=== PATIENT | female | born 1960 | race Caucasian/White ===

== ENCOUNTER 2020-05-02 09:59 | Outpatient (REF) | payer MEDICARE, SELFPAY ==
--- NOTE | 2020-05-02 10:06 | MM_ITS ---
EXAMINATION: MM SCREENING DIGITAL BREAST TOMOSYNTHESIS, BILATERAL CLINICAL INFORMATION: Screening. Asymptomatic. Prior history reduction mammoplasty. The lifetime risk of breast cancer based on the Tyrer-Cuzick Model is 7%. COMPARISON: Mammography: 04/27/2019, 04/23/2018, 01/31/2017 TECHNIQUE: Digital breast tomosynthesis is performed in both the craniocaudal and mediolateral oblique views along with computer-aided detection (CAD). Synthesized 2D images are generated from the tomosynthesis. FINDINGS: There are scattered areas of fibroglandular density (ACR BI-RADS breast composition Category b). Breast tissue composition borders on heterogeneously dense. Parenchymal pattern is similar to prior study. There is no significant mass or interval architectural abnormality or abnormal calcifications. No significant changes from prior studies. MM/MM tomosynthesis screening BI IMPRESSION: No significant changes from prior exams. ASSESSMENT: BI-RADS 2: Benign RECOMMENDATION: Routine annual mammography screening. This patient's information was entered into a reminder system with a target due date for their next mammogram.
== END 2020-05-02 10:00 | disposition home or self-care (01) ==
LOC: HO.MAMMO 09:59
PROVIDERS: PCP Family Medicine; Visit Provider Family Medicine
DX: Z12.31 Encounter for screening mammogram for malignant neoplasm of breast (principal)
CPT/HCPCS: 77063; 77067

== ENCOUNTER 2021-05-08 12:09 | Outpatient (REF) | payer MEDICARE, SELFPAY ==
--- NOTE | ~2021-05-08 | XR_ITS ---
EXAMINATION: XR FOOT, LEFT CLINICAL INFORMATION: Question of foot fracture. COMPARISON: 03/29/2019 left foot radiographs. TECHNIQUE: AP, lateral, and oblique views of the left foot. FINDINGS: There is no acute fracture or dislocation. The joint spaces are unremarkable. The tarsal bones are normally aligned. A type II accessory navicular bone is noted. There is a small plantar calcaneal spur. Impression unremarkable. XR/XR foot LT min 3V IMPRESSION: 1. No acute abnormality in the left foot. 2. Small, degenerative plantar calcaneal spur.
--- NOTE | ~2021-05-08 | XR_ITS ---
EXAMINATION: XR HAND, LEFT CLINICAL INFORMATION: Left wrist injury. COMPARISON: None TECHNIQUE: PA, lateral, and oblique views of the left hand. An arrow points to the second digit. FINDINGS: Mild second and third distal interphalangeal degenerative joint changes are seen. Mild subcortical cystic changes are seen in the distal head of the third metacarpal. A tiny osseous density is seen at the ulnar base of the proximal phalanx of the second digit. There is mild soft tissue swelling. XR/XR hand LT min 3V IMPRESSION: 1. Mild degenerative joint changes most consistent with osteoarthritis. 2. Tiny osseous density at the radial base of the proximal phalanx of the second digit. The overall appearance is not appear acute, but this does correlate in location to the indicated region of pain. A nondisplaced acute intra-articular fracture cannot be excluded. Correlate with patient history and physical exam.
== END 2021-05-08 12:10 | disposition home or self-care (01) ==
LOC: HO.XRAY 12:09
PROVIDERS: PCP Family Medicine; Visit Provider Emergency Medicine
DX: S69.92XD Unspecified injury of left wrist, hand and finger(s), subsequent encounter (principal); S92.502D Displaced unspecified fracture of left lesser toe(s), subsequent encounter for fracture with routine healing
CPT/HCPCS: 73130; 73630

== ENCOUNTER 2021-11-10 08:49 | Outpatient (REF) | payer MEDICARE, SELFPAY ==
--- NOTE | ~2021-11-10 | MM_ITS ---
EXAMINATION: MM SCREENING DIGITAL BREAST TOMOSYNTHESIS, BILATERAL CLINICAL INFORMATION: Screening. Asymptomatic. The lifetime risk of breast cancer based on the Tyrer-Cuzick Model is 6%. COMPARISON: Mammography: 05/02/2020, 04/27/2019, 04/23/2018, 01/31/2017 TECHNIQUE: Digital breast tomosynthesis is performed in both the craniocaudal and mediolateral oblique views along with computer-aided detection (CAD). Synthesized 2D images are generated from the tomosynthesis. FINDINGS: There are scattered areas of fibroglandular density (ACR BI-RADS breast composition Category b). There are no significant masses, abnormal calcifications, or other abnormalities. There are scattered shifting fibroglandular parenchymal densities from year to year related to variation in positioning. No developing density or significant changes. Presentation composition borders on heterogeneously dense. No developing density. MM/MM tomosynthesis screening BI IMPRESSION: No mammographic evidence of malignancy. ASSESSMENT: BI-RADS 2: Benign RECOMMENDATION: Routine annual mammography screening. This patient's information was entered into a reminder system with a target due date for their next mammogram.
== END 2021-11-10 08:50 | disposition home or self-care (01) ==
LOC: HO.MAMMO 08:49
PROVIDERS: Visit Provider Family Medicine
DX: Z12.31 Encounter for screening mammogram for malignant neoplasm of breast (principal)
CPT/HCPCS: 77063; 77067

== ENCOUNTER 2022-08-31 15:52 | Outpatient (REF) | payer MEDICARE, SELFPAY ==
--- NOTE | ~2022-08-31 | XR_ITS ---
EXAMINATION: XR SHOULDER, RIGHT CLINICAL INFORMATION: Right shoulder pain. COMPARISON: None available. TECHNIQUE: AP external rotation, Grashey, scapular Y, and axillary views of the right shoulder. FINDINGS: The bones and soft tissues are normal. No fracture. Glenohumeral and acromioclavicular alignment is anatomic with normal joint space. No abnormal soft tissue calcifications. XR/XR shoulder RT min 2V IMPRESSION: Unremarkable right shoulder.
== END 2022-08-31 15:53 | disposition home or self-care (01) ==
LOC: HO.HHCX 15:52
PROVIDERS: PCP Family Medicine; Visit Provider Nurse Practitioner Primary Care
DX: M25.511 Pain in right shoulder (principal)
CPT/HCPCS: 73030

== ENCOUNTER 2022-09-11 14:41 | Outpatient (REF) | payer OTHER, SELFPAY ==
--- NOTE | ~2022-09-11 | US_ITS ---
EXAMINATION: Ultrasound extremity nonvascular CLINICAL INFORMATION: Tender mass right upper arm COMPARISON: None. TECHNIQUE: Grayscale and color imaging of the soft tissues of the right upper extremity FINDINGS: There is a 1 x 1 x 0.8 cm oval-shaped solid hyperechoic avascular soft tissue mass just deep to the skin corresponding to palpable abnormality. Ultrasound appearance is suggestive of a lipoma. US/US extremity nonvascular IMPRESSION: 1 x 1 x 0.6 cm hyperechoic solid subcutaneous mass suggestive of a lipoma. Further evaluation with contrast-enhanced CT or MRI should be considered if this is painful or increasing in size.
== END 2022-09-11 14:42 | disposition home or self-care (01) ==
LOC: HO.US 14:41
PROVIDERS: PCP Family Medicine; Visit Provider Nurse Practitioner Primary Care
DX: M79.89 Other specified soft tissue disorders (principal)
CPT/HCPCS: 76882

== ENCOUNTER 2022-11-16 08:53 | Outpatient (REF) | payer OTHER, SELFPAY ==
--- NOTE | ~2022-11-16 | MM_ITS ---
EXAMINATION: MM SCREENING DIGITAL BREAST TOMOSYNTHESIS, BILATERAL CLINICAL INFORMATION: Screening. Asymptomatic. The patient has had bilateral reduction mammoplasty. The lifetime risk of breast cancer based on the Tyrer-Cuzick Model is 6.3%. COMPARISON: Mammography: This study is compared with prior exams dating back to 2017. TECHNIQUE: Digital breast tomosynthesis is performed in both the craniocaudal and mediolateral oblique views along with computer-aided detection (CAD). Synthesized 2D images are generated from the tomosynthesis. FINDINGS: The breasts are heterogeneously dense, which may obscure small masses (ACR BI-RADS breast composition Category c). There are no significant masses, abnormal calcifications, or other abnormalities. Post reduction changes are present in each breast. MM/MM tomosynthesis screening BI IMPRESSION: No mammographic evidence of malignancy. ASSESSMENT: BI-RADS BI-RADS 2 - Benign Findings RECOMMENDATION: Routine annual mammography screening. 1 year F/U This examination should not preclude the clinical evaluation of a suspicious palpable abnormality. This patient's information was entered into a reminder system with a target due date for their next mammogram.
== END 2022-11-16 08:54 | disposition home or self-care (01) ==
LOC: HO.MAMMO 08:53
PROVIDERS: PCP Family Medicine; Visit Provider Family Medicine
DX: Z12.31 Encounter for screening mammogram for malignant neoplasm of breast (principal)
CPT/HCPCS: 77063; 77067

== ENCOUNTER → 2022-11-16 09:00 | Outpatient (BNV) | payer OTHER, SELFPAY | PROVIDERS: PCP Family Medicine; Visit Provider Radiology Diagnostic Radiology | DX: Z12.31 Encounter for screening mammogram for malignant neoplasm of breast (principal) | CPT/HCPCS: 77063; 77067 ==

== ENCOUNTER 2023-01-04 11:20 | Outpatient (REF) | payer OTHER, SELFPAY ==
[2023-01-04 13:09] LABS: MANUAL DIFF FLAG NO
[2023-01-04 13:33] LABS: Estimated Average Glucose 105 mg/dL; Hemoglobin A1c % 5.3 % (<6.0)
[2023-01-04 13:36] LABS: Basophils Percent Auto 0.1 % (0-2); Eosinophils Absolute Auto 0.1 X10*3/uL (0.0-0.4); Eosinophils Percent Auto 1.3 % (0-4); Hemoglobin 14.4 g/dl (12.0-16.0); Imm Gran Abs Auto 0.01 X10*3/uL (0.00-0.03); Imm Gran Pct Auto 0.1 % (0.0-0.4); Lymphocytes Percent Auto 44.3 % (20-40); Mean Corpuscular HGB Conc 33.5 g/dl (31.0-35.0); Mean Corpuscular Hemoglobin 30.4 pg (27.0-33.0); Mean Corpuscular Volume 90.7 fL (80.0-98.0); Mean Platelet Volume 11.4 fL (9.4-12.3); Monocytes Absolute Auto 0.6 X10*3/uL (0.1-1.2); Neutrophils Absolute Auto 3.1 x10*3/uL (2.0-8.3); Neutrophils Percent Auto 45.2 % (45-73); Platelet Count 198 X10*3/uL (160-400); Red Blood Count 4.74 X10*6/uL (4.20-5.50); Red Cell Distribution Width 12.6 % (11.0-16.0); White Blood Count 6.8 X10*3/uL (4.8-10.8)
[2023-01-04 13:53] LABS: Alanine Aminotransferase 15 U/L (0-31); Alkaline Phosphatase 185 U/L (39-117); Aspartate Amino Transferase 22 U/L (5-31); Bilirubin Direct 0.2 mg/dL (0.0-0.5); Bilirubin Total 0.4 mg/dL (0.0-1.0); Cholesterol 166 mg/dL (<200); HDL Cholesterol 41 mg/dL (>40); LDL Cholesterol Calculated 102 mg/dL (<100); Total Protein 7.2 g/dL (6.5-8.0); Triglycerides 119 mg/dL (<150)
[2023-01-04 14:15] LABS: TSH reflex Free T4 1.39 uIU/mL (0.32-4.0)
[2023-01-05 09:25] LABS: ~HepC Num1 0.13 S/CO (0.00-0.79); ~Hepatitis C Antibody Nonreactive (Nonreactive)
[2023-01-06 12:39] LABS: Calcium (PTHI) 9.4 mg/dL (8.6-10.4); PTHI 98 pg/mL (16-77)
[2023-01-09 17:49] LABS: VITAMIN D (1,25 OH) D3 68 pg/mL; Vit D (1,25-Dihydroxy) Total 68 pg/mL (18-72); Vitamin D (1,25 OH) D2 <8 pg/mL
== END 2023-01-04 11:21 | disposition home or self-care (01) ==
LOC: HO.HHCL 11:20
PROVIDERS: Visit Provider Family Medicine
DX: E66.09 Other obesity due to excess calories (principal); M79.7 Fibromyalgia; E55.9 Vitamin D deficiency, unspecified; I10 Essential (primary) hypertension; E21.3 Hyperparathyroidism, unspecified; Z11.59 Encounter for screening for other viral diseases; Z68.31 Body mass index [BMI] 31.0-31.9, adult; Z13.1 Encounter for screening for diabetes mellitus
CPT/HCPCS: 36415; 80061; 80076; 82652; 83036; 83970; 84443; 85025; 86803

== ENCOUNTER 2023-01-21 09:44 | Outpatient (AMB) | payer OTHER, SELFPAY ==
[2023-01-21 09:55] VITALS: BP 159/71; PULSE 59; BMI 28.1
--- NOTE | 2023-01-21 09:55 | MHC.OFFVIS ---
Intake Vital Signs 01/21/23 09:55 Height 4 ft 11 in Weight 139 lb BMI 28.1 BP 159/71 H Blood Pressure Location Rt brachial Position Sitting Pulse 59 Intake Visit Reasons: Mass on RT arm Intake Note: Patient referred for growth on Rt upper arm. Has been present for 10 yrs. States it has been enlarging over the years. C/o pain when lifting heavy objects. At times feels sore and tender to touch. Thinks it may be pinching a nerve. Lead Front End Developer Required: No Accompanied by: Self / Same As Patient Allergies [place] And Derivatives Allergy (Mild, Unverified 01/21/23 09:59) RASH pear [Pear] Allergy (Mild, Unverified 01/21/23 09:59) RASH colored soda Allergy (Unknown, Uncoded 01/21/23 09:59) Rash dogs/cats Allergy (Unknown, Uncoded 01/21/23 09:59) Rash dust Allergy (Unknown, Uncoded 01/21/23 09:59) Hives hot dogs Allergy (Unknown, Uncoded 01/21/23 09:59) Hives pollen Allergy (Unknown, Uncoded 01/21/23 09:59) Hives Medication List - Last Reconciled 01/21/23 by Ortiz Vila MD cetirizine (Allergy Relief (cetirizine)) 10 mg PO DAILY PRN fluticasone propionate 44 mcg/actuation 1 puff inhalation BID omeprazole 20 mg PO DAILY pregabalin 150 mg PO DAILY propranolol 20 mg PO BID simethicone 180 mg PO DAILY HPI HPI Comments History of Present Illness Details Patient presents with a several year history of a right upper outer arm soft tissue mass. His increasing size, become more symptomatic. She would like to have removed. The patient also feels a fullness of the right side of her neck that she wishes to have evaluated Chart was reviewed patient evaluated [facility] Medical History (Updated 01/21/23 @ 10:08 by ROSALIO Guzman) Insomnia Anxiety Sinusitis Migraine HTN (hypertension) section wound complication Sinusitis chronic, frontal Surgical History (Updated 01/21/23 @ 11:29 by Ortiz Vila MD) History of lithotripsy Hx of breast reduction, elective Family History (Updated 01/21/23 @ 10:05 by ROSALIO Guzman) Maternal Grandfather No problems noted. Social History (Updated 01/21/23 @ 10:07 by ROSALIO Guzman) Alcohol intake: never Patient Tobacco Use Status: Never used Tobacco Physical Exam Vital Signs: Last Vital Signs Pulse 59 01/21/23 09:55 BP 159/71 H 01/21/23 09:55 BMI result Body Mass Index 28.1 Neck Other: No obvious cervical periclavicular axillary adenopathy. Question of a soft tissue mass involving the patient the right anterior neck. Question of thyroid origin or soft tissue. Extrem Other: Approximately 2 x 1 cm right upper outer arm masses suggestive of lipoma Office Procedures Excision Details: Risks, benefits, alternatives of excision right upper arm lipoma reviewed the patient included not limited to bleeding, infection, recurrence, numbness, pain, scarring the patient was to proceed. Consent form signed. All questions were answered. After appropriate positioning and marking, patient underwent 1% lidocaine and Betadine prep to the right upper outer arm lipoma area. A longitudinal incision was made in approximately 2 x 1 cm lipoma was uneventfully enucleated. Specimen sent to pathology. Wounds was irrigated, secured hemostasis, and closed using running subcuticular 3-0 Vicryl suture followed by Steri-Strips and sterile dressing. Patient tolerated procedure well. 45968-zeips/arms/legs 1.1-2cm Procedure code (CPT) selection complete Office Meds lidocaine 1 %-epinephrine 1:100,000 injection solution Performing Provider: Ortiz Vila MD Performing Location: [facility] Administered by: Ortiz Vila MD on 01/21/23 11:28 Dose Route Admin Location Dispensed Lot Number Expiration Date [facility] Management Instructor 10 mL Infiltration 10 mL Assessment & Plan Assessment & Plan (1) Mass of thyroid region: Code(s): R22.1 - Localized swelling, mass and lump, neck Plan: Patient has been given local instructions regarding lipoma excision care including no strenuous activities, may shower in 2 days, ice pack to wound, Aleve or Tylenol p.r.n.. Ultrasound of neck is ordered regarding question of thyroid/anterior neck mass (2) Lipoma: Code(s): D17.9 - Benign lipomatous neoplasm, unspecified Orders: Orders AMB Excision Today D17.9 - Benign lipomatous neoplasm, unspecified US soft tiss head and/or neck Today D17.9 - Benign lipomatous neoplasm, unspecified, R22.1 - Localized swelling, mass and lump, neck Coding Level of Care Code New Pt Level 5 (66194) Diagnoses Mass of thyroid region R22.1 Lipoma D17.9 CPT Codes Trunk/Arms/Legs - CPT: 93011-jubob/arms/legs 1.1-2cm ([id number])
== END 2023-01-21 10:42 | disposition home or self-care (01) ==
PROVIDERS: PCP Family Medicine; Referring Provider Family Medicine; Visit Provider Surgery
DX: R22.1 Localized swelling, mass and lump, neck (principal); D17.21 Benign lipomatous neoplasm of skin and subcutaneous tissue of right arm
CPT/HCPCS: 11401; 99204

== ENCOUNTER 2023-01-21 09:44 | Outpatient (REF) | payer OTHER, SELFPAY | END 2023-01-21 09:45 | disposition home or self-care (01) | LOC: HO.LNP 09:44 | PROVIDERS: PCP Family Medicine; Referring Provider Family Medicine; Visit Provider Surgery | DX: R22.1 Localized swelling, mass and lump, neck (principal); D17.9 Benign lipomatous neoplasm, unspecified | CPT/HCPCS: 11401; 88304 ==

== ENCOUNTER 2023-01-28 09:55 | Outpatient (AMB) | payer OTHER, SELFPAY ==
[2023-01-28 09:59] VITALS: BP 135/59; PULSE 77; BMI 27.9
--- NOTE | 2023-01-28 09:59 | MHC.OFFVIS ---
Intake Vital Signs 01/28/23 09:59 Height 4 ft 11 in Weight 138 lb BMI 27.9 BP 135/59 L Blood Pressure Location Rt brachial Position Sitting Pulse 77 Intake Visit Reasons: s/p excision lipoma Rt arm Intake Note: Patient here s/p exc rt upper arm. Reports incision healing well. Denies pain or oozing. C/o mild bruising around incision. Convict Guard Required: No Accompanied by: Self / Same As Patient Allergies [place] And Derivatives Allergy (Mild, Unverified 01/28/23 10:07) RASH pear [Pear] Allergy (Mild, Unverified 01/28/23 10:07) RASH colored soda Allergy (Unknown, Uncoded 01/28/23 10:07) Rash dogs/cats Allergy (Unknown, Uncoded 01/28/23 10:07) Rash dust Allergy (Unknown, Uncoded 01/28/23 10:07) Hives hot dogs Allergy (Unknown, Uncoded 01/28/23 10:07) Hives pollen Allergy (Unknown, Uncoded 01/28/23 10:07) Hives HPI HPI Comments History of Present Illness Details Patient's for follow-up. She has no incisional issues or complaints. Pathology is benign. [facility] Medical History Insomnia Anxiety Sinusitis Migraine HTN (hypertension) section wound complication Sinusitis chronic, frontal Surgical History History of lithotripsy Hx of breast reduction, elective Family History Maternal Grandfather No problems noted. Social History Alcohol intake: never Patient Tobacco Use Status: Never used Tobacco Physical Exam Vital Signs: Last Vital Signs Pulse 77 01/28/23 09:59 BP 135/59 L 01/28/23 09:59 BMI result Body Mass Index 27.9 Extrem Other: Incisional wounds clean dry and intact, healing uneventfully. Assessment & Plan Assessment & Plan (1) Lipoma: Code(s): D17.9 - Benign lipomatous neoplasm, unspecified (2) Mass of thyroid region: Code(s): R22.1 - Localized swelling, mass and lump, neck Plan Patient has been given local instructions, and is scheduled for her thyroid/neck ultrasound on February 05. She will see me approximate 1 week later regarding the results. All questions were answered. Coding Level of Care Code Est Pt Level 3 (02968) Global (92858) Diagnoses Lipoma D17.9 Mass of thyroid region R22.1
== END 2023-01-28 10:41 | disposition home or self-care (01) ==
PROVIDERS: PCP Family Medicine; Visit Provider Surgery
DX: D17.9 Benign lipomatous neoplasm, unspecified (principal); R22.1 Localized swelling, mass and lump, neck
CPT/HCPCS: 99024

== ENCOUNTER → 2023-01-28 09:55 | Outpatient (BNVA) | payer OTHER, SELFPAY | PROVIDERS: PCP Family Medicine; Visit Provider Surgery ==

== ENCOUNTER 2023-02-05 14:34 | Outpatient (REF) | payer OTHER, SELFPAY ==
--- NOTE | ~2023-02-05 | US_ITS ---
EXAMINATION: US SOFT TISSUE HEAD/NECK CLINICAL INFORMATION: Inferior left neck palpable lump. COMPARISON: Ultrasound thyroid 07/29/2012. TECHNIQUE: Using a linear array transducer with ramos-scale and color modalities, ultrasound examination is performed of the inferior left cervical soft tissues, with attention directed at the palpable finding at that location. FINDINGS: The cutaneous, subcutaneous, muscular and fascial planes are unremarkable. No mass or fluid collection is seen. There is no lymphadenopathy. No foreign body is noted. There are 2 tiny nodules (9 mm and 3 mm) noted by the sonography in the right thyroid lobe which do not correspond with the palpable finding of present concern. US/US soft tiss head and/or neck IMPRESSION: Unremarkable ultrasound examination of the inferior left cervical soft tissues.
== END 2023-02-05 14:35 | disposition home or self-care (01) ==
LOC: HO.US 14:34
PROVIDERS: PCP Family Medicine; Visit Provider Surgery
DX: D17.9 Benign lipomatous neoplasm, unspecified (principal); R22.1 Localized swelling, mass and lump, neck
CPT/HCPCS: 76536

== ENCOUNTER 2023-02-12 10:11 | Outpatient (AMB) | payer OTHER, SELFPAY ==
[2023-02-12 10:18] VITALS: BP 141/68; PULSE 77; BMI 28.5
--- NOTE | 2023-02-12 10:18 | A.OFFVIS_ITS ---
Intake Vital Signs 02/12/23 10:18 Height 4 ft 11 in Weight 141 lb BMI 28.5 BP 141/68 H Blood Pressure Location Rt brachial Position Sitting Pulse 77 Intake Visit Reasons: follow up us Intake Note: Patient here to discuss Head and neck u/s results. Proof Tester Required: No Accompanied by: Self / Same As Patient Allergies [place] And Derivatives Allergy (Mild, Unverified 02/12/23 10:19) RASH pear [Pear] Allergy (Mild, Unverified 02/12/23 10:19) RASH colored soda Allergy (Unknown, Uncoded 02/12/23 10:19) Rash dogs/cats Allergy (Unknown, Uncoded 02/12/23 10:19) Rash dust Allergy (Unknown, Uncoded 02/12/23 10:19) Hives hot dogs Allergy (Unknown, Uncoded 02/12/23 10:19) Hives pollen Allergy (Unknown, Uncoded 02/12/23 10:19) Hives HPI HPI Comments History of Present Illness Details Patient presents for follow-up. Neck ultrasound was essentially negative. [facility] Medical History Insomnia Anxiety Sinusitis Migraine HTN (hypertension) section wound complication Sinusitis chronic, frontal Surgical History History of lithotripsy Hx of breast reduction, elective Family History Maternal Grandfather No problems noted. Social History Alcohol intake: never Patient Tobacco Use Status: Never used Tobacco Physical Exam Vital Signs: Last Vital Signs Pulse 77 02/12/23 10:18 BP 141/68 H 02/12/23 10:18 BMI result Body Mass Index 28.5 Neck Other: No obvious cervical periclavicular axillary thyroid pathology demonstrated. Extrem Other: Right upper arm incision healing well. Assessment & Plan Assessment & Plan (1) Lipoma: Code(s): D17.9 - Benign lipomatous neoplasm, unspecified Plan The present time, regarding the thyroid/neck, patient will be treated conservatively secondary to negative exam and negative ultrasound. She will follow-up p.r.n.. Coding Level of Care Code Est Pt Level 3 (35250) Diagnoses Lipoma D17.9
== END 2023-02-12 10:19 | disposition home or self-care (01) ==
PROVIDERS: PCP Family Medicine; Visit Provider Surgery
DX: D17.9 Benign lipomatous neoplasm, unspecified (principal)
CPT/HCPCS: 99213

== ENCOUNTER → 2023-02-12 10:11 | Outpatient (BNVA) | payer OTHER, SELFPAY | PROVIDERS: PCP Family Medicine; Visit Provider Surgery | DX: R22.1 Localized swelling, mass and lump, neck (principal); D17.9 Benign lipomatous neoplasm, unspecified | CPT/HCPCS: 99212 ==

== ENCOUNTER 2023-09-20 09:36 | Outpatient (REF) | payer OTHER, SELFPAY ==
--- NOTE | ~2023-09-20 | US_ITS ---
EXAMINATION: US RETROPERITONEAL LIMITED (RENAL ONLY) CLINICAL INFORMATION: Right flank pain. COMPARISON: There are 09/15/2018 TECHNIQUE: Renal ultrasound FINDINGS: RIGHT KIDNEY: 10.2 x 4.6 x 4.7 cm (SAG x AP x TRV). The kidney is normal in size, contour, and echogenicity. Renal cortical thickness is normal. No focal parenchymal lesions. No hydronephrosis. There are numerous echogenic foci consistent with stones with the largest measured 0.6 x 0.3 x 0.4 cm in the lower pole LEFT KIDNEY: 10.4 x 5.2 x 4.9 cm (SAG x AP x TRV). The kidney is normal in size, contour, and echogenicity. Renal cortical thickness is normal. No calculi focal parenchymal lesions. No hydronephrosis. There are multiple echogenic foci with a cluster of calculi seen in the lower pole with twinkle artifact US/US renal BI IMPRESSION: Bilateral nonobstructing nephrolithiasis..
== END 2023-09-20 09:37 | disposition home or self-care (01) ==
LOC: HO.US 09:36
PROVIDERS: PCP Family Medicine; Visit Provider Nurse Practitioner Primary Care
DX: R10.9 Unspecified abdominal pain (principal)
CPT/HCPCS: 76775